=== PATIENT | female | born 1990 | race Caucasian/White ===

== ENCOUNTER 2017-04-13 19:51 | Emergency (ER) | payer MEDICAID, OTHER ==
--- NOTE | 2017-04-13 20:44 | ED Physician Chart ---
Chief Complaint/HPI - Patient Information Date Seen:: 04/13/17 Time Seen:: 20:39 Chief Complaint:: anxious History of Present Illness:: pt was in car w her kids. has not been sleeping well lately. pt is in custodial. she has shared custody w her ex-spouse. is concerned about her kids care. pt felt very shakey and tingly on b sides of body..some better here now. drove here w her mom. no fever. no uri sx. no abd p. no cp. no sob. is anxious. has never been on anx meds. pt was in car earlier and felt v anxious. ems arrived and said vs wnl. seemed like anxiety to her. Vitals:: Vital Signs - 8 hr 04/13/17 20:10 Temp 99.3 F HR 81 RR 18 BP 121/68 O2 Sat % 98 Review of Systems - Review of Systems General/Constitutional: No fever, No chills, No weight loss, No weakness, No diaphoresis, No edema, No loss of appetite Skin: No skin lesions, No rash, No bruising Head: No headache, No light-headedness Eyes: No loss of vision, No pain, No diplopia ENT: No earache, No nasal drainage, No sore throat, No tinnitus Neck: No neck pain, No swelling, No thyromegaly, No stiffness, No mass noted Cardio Vascular: No chest pain, No palpitations, No PND, No orthopnea, No edema Pulmonary: No SOB, No cough, No sputum, No wheezing GI: No nausea, No vomiting, No diarrhea, No pain, No melena, No hematochezia, No constipation, No hematemesis G/U: No dysuria, No frequency, No hematuria Musculoskeletal: No bone or joint pain, No back pain, No muscle pain Endocrine: No polyuria, No polydipsia Psychiatric: No prior psych history, No depression, Anxiety, No suicidal ideation Hematopoietic: No bruising, No lymphadenopathy Allergic/Immuno: No urticaria, No angioedema Neurological: No syncope, No focal symptoms, No weakness, No paresthesia, No headache, No seizure, No dizziness, No confusion, No vertigo Past Medical History - Past Medical History Past Medical History: PUD/GERD, Other (abx assoc pancreatitis 1x) Social History: Single Medication: Reviewed Physical Exam - Physical Examination General/Constitutional: Awake, Well-developed, well-nourished, Alert, No distress, GCS 15, Non-toxic appearing, Ambulatory Other Gen/Cons comments:: obvious anxiety. but cogent and able to converse ok. Head: Atraumatic Eyes: Lids, conjuctiva normal, PERRL, EOMI Skin: Nl inspection, No rash, No skin lesions, No ecchymosis, Well hydrated, No lymphadenopathy ENMT: External ears, nose nl, Nasal exam nl, Lips, teeth, gums nl Neck: Nontender, Full ROM w/o pain, No JVD, No nuchal rigidity, No bruit, No mass, No stridor Respiratory: Nl effort/Exclusion, Clear to Auscultation, No Wheeze/Rhonchi/Rales Cardio Vascular: RRR, No murmur, gallop, rubs, NL S1 S2 GI: No tenderness/rebounding/guarding, No organomegaly, No hernia, Normal BS's, Nondistended, No mass/bruits, No McBurney tenderness : No CVA tenderness Extremities: No tenderness or effusion, Full ROM, normal strength in all extremities, No edema, Normal digits & nails Neuro/Psych: Alert/oriented, DTR's symmetric, Normal sensory exam, Normal motor strength, Judgement/insight normal, Mood normal, Normal gait, No focal deficits Misc: normal gait, Normal back, No paraspinal tenderness ED Septic Shock - . Is Septic Shock (SBP<90, OR Lactate>4 mmol\L) present?: No - <6hrs of presentation: Vital Signs: Vital Signs - 8 hr 04/13/17 20:10 Temp 99.3 F HR 81 RR 18 BP 121/68 O2 Sat % 98 Reassessment (Disposition) - Reassessment Reassessment:: less than 5 min after i spoke w pt and indicated I would run checkup labs pt now says wants to leave [place]?? had just offered ativan if pt would agree not to drive tonight. unclear why changed mind..
== END 2017-04-13 20:45 | disposition left against medical advice (07) ==
LOC: ER 19:51
DX: F41.9 Anxiety disorder, unspecified (principal); K21.9 Gastro-esophageal reflux disease without esophagitis
CPT/HCPCS: 84703-TC; Z7502